=== PATIENT | male | born 1970 | race Caucasian/White ===

== ENCOUNTER → 2024-08-10 14:58 | Outpatient (BNVA) | payer OTHER, SELFPAY | PROVIDERS: PCP Family Medicine; Visit Provider Family Medicine | DX: Z00.00 Encounter for general adult medical examination without abnormal findings (principal); Z12.5 Encounter for screening for malignant neoplasm of prostate; R53.83 Other fatigue; R68.82 Decreased libido | CPT/HCPCS: 80053; 80061; 84403; 84443; 85025; G0103 ==

== ENCOUNTER → 2024-09-30 11:42 | Outpatient (BNVA) | payer OTHER, SELFPAY | PROVIDERS: PCP Family Medicine; Visit Provider Family Medicine | DX: I10 Essential (primary) hypertension (principal); E29.1 Testicular hypofunction | CPT/HCPCS: 80048; 84403 ==